=== PATIENT | female | born 1985 | race Two or more races ===

== ENCOUNTER 2020-11-16 01:30 | Emergency (ER) | payer MEDICARE, MEDICAID ==
[~2020-11-16] VITALS: Ht 160 cm; Wt 81.2 kg
[2020-11-16 01:30] VITALS: BP 158/103
== END 2020-11-16 05:05 | disposition left against medical advice (07) ==
LOC: ER 01:32
DX: S02.5XXA Fracture of tooth (traumatic), initial encounter for closed fracture (principal); Z53.21 Procedure and treatment not carried out due to patient leaving prior to being seen by health care provider; X58.XXXA Exposure to other specified factors, initial encounter; Y93.89 Activity, other specified; Y92.89 Other specified places as the place of occurrence of the external cause; Y99.8 Other external cause status

== ENCOUNTER 2022-01-10 05:17 | Emergency (ER) | payer MEDICARE, MEDICAID ==
[~2022-01-10] VITALS: Ht 162.6 cm; Wt 102.5 kg
[2022-01-10 06:08] VITALS: BP 149/90
== END 2022-01-10 08:58 | disposition left against medical advice (07) ==
LOC: ER 05:17
DX: M54.2 Cervicalgia (principal); M25.511 Pain in right shoulder; M25.512 Pain in left shoulder; Z53.21 Procedure and treatment not carried out due to patient leaving prior to being seen by health care provider; Y04.2XXA Assault by strike against or bumped into by another person, initial encounter; Y93.89 Activity, other specified; Y92.89 Other specified places as the place of occurrence of the external cause; Y99.8 Other external cause status

== ENCOUNTER 2024-02-22 19:45 | Emergency (ER) | payer MEDICARE, MEDICAID ==
[~2024-02-22] VITALS: Ht 160 cm; Wt 100.0 kg
[2024-02-22] MEDS ORDERED: KETOROLAC TROMETH 30 MG/ML 1ML VIAL IV ONE (20:45)
[2024-02-22 21:17] LABS: Basophils # (auto) 0.1 10 ^3/uL (0-0.2); Basophils % (auto) 1.2 % (0.0-2.0); Eosinophils # (auto) 0.4 10 ^3/uL (0-0.8); Eosinophils % (auto) 4.9 % (0.0-7.0); Hematocrit 33.7 % (36.0-46.0); Hemoglobin 11.7 g/dL (12.2-16.2); Lymphocytes # (auto) 4.5 10 ^3/uL (0.4-5.4); Lymphocytes % (auto) 50.5 % (10.0-50.0); Mean Corpuscular Hemoglobin 33.4 pg (28.0-32.0); Mean Corpuscular Hgb Conc. 34.7 g/dL (32.0-36.0); Mean Corpuscular Volume 96.1 fL (80.0-100.0); Monocytes # (auto) 0.5 10 ^3/uL (0-1.3); Neutrophils # (auto) 3.3 10 ^3/uL (1.6-8.6); Neutrophils % (auto) 37.4 % (37.0-80.0); Nucleated Red Blood Cells % 0.2 %; Red Blood Cells 3.51 10^6/uL (4.0-5.20); Red Cell Distribution Width 13.7 % (11.8-14.3); White Blood Cell 8.8 10^3/uL (4.4-10.8)
[2024-02-22 21:30] LABS: Chloride 107 mmol/L (98-107); Potassium 3.2 mmol/L (3.5-5.1); Sodium 141 mmol/L (136-145)
[2024-02-22 21:31] LABS: Anion Gap 7 (5-15); Calcium 8.7 mg/dL (8.7-10.4); Carbon Dioxide 27 mmol/L (20-30)
[2024-02-22 21:36] LABS: BUN/Creatinine Ratio 9.2 (10.0-20.0); Blood Urea Nitrogen 8 mg/dL (9-23); Glucose 112 mg/dL (74-106)
[2024-02-22] MEDS ORDERED: HYDR-4902 PO (23:21)
[2024-02-22] MEDS: ACETAMINOPHEN 325 MG TAB PO ONE (23:26)
[2024-02-22] MEDS: POTASSIUM CHL 20 Meq TABLET PO ONE (23:27)
[2024-02-22] MEDS: KETOROLAC TROMETH 60MG/2ML VIAL IM ONE (23:28)
[2024-02-22 23:36] VITALS: BP 136/72; PULSE 76; RESP 20; TEMP 98.7; O2SAT 98
== END 2024-02-22 23:39 | disposition home or self-care (01) ==
LOC: ER 19:45
DX: R07.81 Pleurodynia (principal); R06.02 Shortness of breath; I10 Essential (primary) hypertension
CPT/HCPCS: 36415; 71045; 80048; 85025; 96372; 99284; J1885

== ENCOUNTER 2024-02-25 10:10 | Emergency (ER) | payer MEDICARE, MEDICAID ==
[~2024-02-25] VITALS: Ht 160 cm; Wt 99.8 kg
[~2024-02-25 10:10] MED LIST: HYDR-4902 PO
[2024-02-25] MEDS: KETOROLAC TROMETH 30 MG/ML 1ML VIAL IV ONE (10:50)
[2024-02-25] MEDS: SODIUM CHLORIDE 0.9% 1,000 ML IVB ONE (10:50)
[2024-02-25] MEDS: ONDANSETRON HCL 4 MG/2 ML VIAL IV ONE (10:50)
[2024-02-25 10:51] VITALS: RESP 18
[2024-02-25 10:56] VITALS: TEMP 98.2
[2024-02-25 11:30] LABS: Urine Bacteria FEW /hpf (None Seen); Urine Blood 3+ /uL (Negative); Urine Clarity Clear (Clear); Urine Protein, UAD Negative (Negative); Urine Specific Gravity 1.008 (1.001-1.035); Urine Urobilinogen Normal (Negative); Urine WBC 3 /hpf (0 - 5)
[2024-02-25 11:35] LABS: Urine Color Light-Yellow (Yellow)
[2024-02-25 11:39] LABS: Basophils # (auto) 0.1 10 ^3/uL (0-0.2); Basophils % (auto) 0.8 % (0.0-2.0); Chloride 111 mmol/L (98-107); Eosinophils # (auto) 0.4 10 ^3/uL (0-0.8); Eosinophils % (auto) 5.3 % (0.0-7.0); Hematocrit 35.6 % (36.0-46.0); Hemoglobin 12.1 g/dL (12.2-16.2); Lymphocytes # (auto) 2.8 10 ^3/uL (0.4-5.4); Lymphocytes % (auto) 39.9 % (10.0-50.0); Mean Corpuscular Hgb Conc. 34.1 g/dL (32.0-36.0); Mean Corpuscular Volume 96.7 fL (80.0-100.0); Monocytes # (auto) 0.6 10 ^3/uL (0-1.3); Monocytes % (auto) 8.1 % (0.0-12.0); Neutrophils # (auto) 3.2 10 ^3/uL (1.6-8.6); Neutrophils % (auto) 45.9 % (37.0-80.0); Nucleated Red Blood Cells % 0.2 %; Potassium 3.8 mmol/L (3.5-5.1); Red Blood Cells 3.68 10^6/uL (4.0-5.20); Red Cell Distribution Width 14.1 % (11.8-14.3); Sodium 140 mmol/L (136-145)
[2024-02-25 11:40] LABS: Anion Gap 4 (5-15); Carbon Dioxide 25 mmol/L (20-30)
[2024-02-25 11:45] LABS: BUN/Creatinine Ratio 8.6 (10.0-20.0); Blood Urea Nitrogen 6 mg/dL (9-23); Glucose 83 mg/dL (74-106)
[2024-02-25 12:30] VITALS: BP 172/93; PULSE 65; RESP 18; O2SAT 98
[2024-02-25] MEDS ORDERED: HYDR-4902 PO ×2 (13:06→13:26)
[2024-02-25] MEDS ORDERED: TRAM50TA2 PO (13:34)
== END 2024-02-25 14:23 | disposition home or self-care (01) ==
LOC: ER 10:10
DX: R10.2 Pelvic and perineal pain (principal); I10 Essential (primary) hypertension; Z98.51 Tubal ligation status; Z87.891 Personal history of nicotine dependence
CPT/HCPCS: 36415; 74176; 80048; 81001; 84702; 85025; 96361; 96374; 99285; J1885; J7030